=== PATIENT | male | born 1990 ===

== ENCOUNTER 2016-11-03 11:31 | Emergency (ER) | payer MEDICAID, OTHER ==
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
[2016-11-03 13:20] VITALS: BP 110/69; PULSE 55; RESP 18; TEMP 97.5
[2016-11-03] MEDS ORDERED: Lidocaine 5% Patch TD STA (13:32)
[2016-11-03 13:38] VITALS: O2SAT 98
[2016-11-03] MEDS ORDERED: Lidocaine 5% Patch TD ONE (13:41)
== END 2016-11-03 14:14 | disposition home or self-care (01) ==
LOC: C.ER 11:31
DX: M54.2 Cervicalgia (principal)
CPT/HCPCS: 70450; 72125; 96372; 99283; J1885